=== PATIENT | male | born 1950 | race Caucasian/White ===

== ENCOUNTER 2019-08-17 01:06 | Emergency (ER) | payer OTHER, MEDICARE ==
[2019-08-17] MEDS ORDERED: EPINEPHRINE INJ/PF 1 MG/1 ML AMPULE IM ONE (01:38)
[2019-08-17] MEDS ORDERED: METHYLPREDNISOLONE INJ 125 MG/2 ML SDV IV ONE (01:38)
[2019-08-17] MEDS ORDERED: DIPHENHYDRAMINE HCL 50 MG/ML VIAL IV ONE (01:38)
[2019-08-17] MEDS ORDERED: FAMOTIDINE INJ/PF 20 MG/2 ML SDV IV ONE (01:38)
[2019-08-17] MEDS ORDERED: RACEPINEPHRINE HCL 2.25% NEB 0.5 ML AMPUL NEB ONE (01:39)
--- NOTE | 2019-08-17 01:40 | ER Document Report ---
ED Allergic Reaction - General Chief Complaint: Allergic Reaction Stated Complaint: POSSIBLE ALLERGIC REACTION Time Seen by Provider: 08/17/19 01:33 Notes: Patient is a 68-year-old male who comes emergency department for chief complaint of allergic reaction. He states that at about midnight he woke up and he was "itching all over", he states he also started feeling swelling in his tongue, itchiness of the throat. He did have shrimp for dinner. He denies history of the same. He is also currently on amoxicillin for a dental infection. He has been taking this for 4 days. Patient denies chest pain, denies any other complaints. He does have a history of [place], CAD, stents, pacemaker. - Related Data Allergies/Adverse Reactions: No Known Allergies Allergy (Unverified 08/17/19 01:19) Past Medical History - General Information source: Patient - Social History Smoking Status: Former Smoker Frequency of alcohol use: None Drug Abuse: None Lives with: Family Family History: Reviewed & Not Pertinent Patient has homicidal ideation: No - Past Medical History Cardiac Medical History: Reports: Hx Coronary Artery Disease, Hx Heart Attack Past Surgical History: Reports: Hx Coronary Stent, Hx Pacemaker - Immunizations Immunizations up to date: Yes Hx Diphtheria, Pertussis, Tetanus Vaccination: Yes Review of Systems - Review of Systems Constitutional: No symptoms reported EENT: See HPI Cardiovascular: No symptoms reported Respiratory: See HPI Gastrointestinal: No symptoms reported Genitourinary: No symptoms reported Male Genitourinary: No symptoms reported Musculoskeletal: No symptoms reported Skin: See HPI Hematologic/Lymphatic: No symptoms reported Neurological/Psychological: No symptoms reported Physical Exam - Vital signs Vitals: Temp 97.3 F 08/17/19 01:20 - Notes Notes: GENERAL: Alert, interacts well. HEAD: Normocephalic, atraumatic. EYES: Pupils equal, round, and reactive to light. Extraocular movements intact. ENT: Oral mucosa moist, tongue midline but also noticeably swollen, difficult to clearly see posterior pharynx because of the large size of the tongue. Airway was still visualized and was patent, uvula unremarkable. Patient has some difficulty speaking because of the large tongue, has trouble forming words. Nares patent, sinuses non-tender, ear canals unremarkable, TM's intact. NECK: Full range of motion. Supple. Trachea midline. No lymphadenopathy. LUNGS: Clear to auscultation bilaterally, no wheezes, rales, or rhonchi. No respiratory distress. Non-tender chest wall. Pacemaker noted in the left upper chest.. HEART: Regular rate and rhythm. No murmur ABDOMEN: Soft, non-tender. Non-distended. EXTREMITIES: Moves all 4 extremities spontaneously. No edema, normal radial and dorsalis pedis pulses bilaterally. No cyanosis. BACK: no cervical, thoracic, lumbar midline tenderness. No saddle anesthesia, normal distal neurovascular exam. Moves all extremities in full range of motion. NEUROLOGICAL: Alert and oriented x3. Normal speech. Cranial nerves II through XII grossly intact. Strength 5/5 in all extremities. PSYCH: Normal affect, normal mood. SKIN: Warm, dry, normal turgor. Scattered vague erythematous appearance of the arms and forearms mainly, slightly over the anterior chest as well. No overt urticaria, no rash otherwise. Unremarkable otherwise. Course - Re-evaluation Re-evalutation: 08/17/19 01:40 Patient with an obvious allergic reaction, he has puffiness around the eyelids of the left eye, swollen tongue, slightly muffled voice, faint scattered rash and itchy skin. Consistent with anaphylaxis. Initial blood pressure was 93 systolic. Patient was immediately given 0.3 mg of IM epinephrine, racemic epinephrine, 25 mg of Benadryl, 20 mg of Pepcid, 125 mg of IV Solu-Medrol. Patient discussed with Dr. Villalba. 08/17/19 02:01 Patient has been rechecked twice, tongue is improved, blood pressure is normal, patient without any worsening symptoms. He will continue to be monitored. 08/17/19 02:25 Swelling of the tongue is slightly present but significantly improved, swelling of the left orbital area/eyelids has improved, rash is gone, no new symptoms develop. Patient will continue to be monitored. 08/17/19 04:00 Patient without any worsening symptoms, but not changed from previous exam. Discussed with Dr. Villalba, he recommends that he be given a dose of Decadron for here and for the next 3 days, if he continues to have improvement and has no worsening symptoms he can be discharged with antihistamines, EpiPen, strict return precautions. 08/17/19 05:19 Patient has been here over 4 hours. Tongue swelling is gone, patient is speaking and swallowing normally, he still has some puffiness of the left eyelid but no other current symptoms. Discussed recommendations and return precautions in detail with patient, he states understanding and agreement with plan. - Vital Signs Vital signs: Temp Pulse Resp BP Pulse Ox 97.9 F 12 128/80 H 96 08/17/19 05:29 08/17/19 05:29 08/17/19 05:29 08/17/19 05:29 Discharge - Discharge Clinical Impression: Allergic reaction Qualifiers: Encounter type: initial encounter Qualified Code(s): T78.40XA - Allergy, unspecified, initial encounter Anaphylaxis Qualifiers: Encounter type: initial encounter Qualified Code(s): T78.2XXA - Anaphylactic shock, unspecified, initial encounter Condition: Stable Disposition: HOME, SELF-CARE Additional Instructions: You have been evaluated and treated for a severe allergic reaction tonight. The swelling around your eye should resolve with time. You have been treated with steroids that should last over the next 3 days or so in your system, also take the antihistamines as prescribed for 1 week. Follow-up with primary care for additional management. I strongly recommend that you avoid any shellfish. If you develop any concerning symptoms including swelling of the tongue, lips, face, throat, difficulty breathing, etc. take the EpiPen and immediately return to the emergency department. Return for any other concerning or worsening symptoms. Prescriptions: Cetirizine HCl [All Day Allergy] 10 mg PO DAILY #30 capsule Epinephrine [Epipen 2-Chandrakant] 0.3 mg IM ASDIR PRN #1 packet PRN Reason: Famotidine [Pepcid 20 mg Tablet] 20 mg PO BID #14 tablet
[2019-08-17] MEDS ORDERED: DEXAMETHASONE SOD PHOS INJ 10 MG/1 ML VIAL IV ONE (04:33)
[2019-08-17 05:37] VITALS: BP 128/80
== END 2019-08-17 05:38 | disposition home or self-care (01) ==
LOC: ER 01:06
DX: T78.2XXA Anaphylactic shock, unspecified, initial encounter (principal); K04.7 Periapical abscess without sinus; I25.10 Atherosclerotic heart disease of native coronary artery without angina pectoris; I25.2 Old myocardial infarction; Z95.5 Presence of coronary angioplasty implant and graft; Z95.0 Presence of cardiac pacemaker; Z87.891 Personal history of nicotine dependence
CPT/HCPCS: 94640; 99284; 96372; 96374; 96375; J1200; J0171; J2930; S0028; J1100; J3490